=== PATIENT | female | born 1995 | race Caucasian/White ===

== ENCOUNTER 2017-04-23 12:57 | Emergency (ER) | payer MEDICAID ==
[~2017-04-23] VITALS: Ht 157.5 cm; Wt 68.0 kg
[2017-04-23 13:14] VITALS: BP 111/52
== END 2017-04-23 18:24 | disposition left against medical advice (07) ==
LOC: ER 14:05
DX: R07.81 Pleurodynia (principal)
CPT/HCPCS: 81025; 93005; 99283; 99284

== ENCOUNTER 2017-04-29 01:52 | Emergency (ER) | payer SELFPAY ==
[~2017-04-29] VITALS: Ht 160 cm; Wt 69.0 kg
[2017-04-29 07:45] VITALS: BP 105/64
[2017-04-29] MEDS ORDERED: KETOROLAC 60MG/2ML VIAL IM NR (07:45)
== END 2017-04-29 09:37 | disposition home or self-care (01) ==
LOC: ER 02:42
DX: R07.89 Other chest pain (principal); F12.10 Cannabis abuse, uncomplicated; Z98.890 Other specified postprocedural states
CPT/HCPCS: 71010; 81025; 93005; 96372; 99284; J1885; Z7610